=== PATIENT | female | born 1980 | race Two or more races ===

== ENCOUNTER 2023-12-18 18:18 | Emergency (ER) | payer SELFPAY ==
[2023-12-18 18:30] VITALS: BP 126/87; PULSE 88; RESP 20; TEMP 98.7; BMI 31.1
[2023-12-18] MEDS ORDERED: IBUPROFEN 600 MG TABLET (FP) PO ONE (19:47)
[2023-12-18] MEDS ORDERED: ACETAMINOPHEN 500 MG TABLET (FP) ONE (19:47)
[2023-12-18] MEDS: ACETAMINOPHEN 500 MG TABLET (FP) PO ONE (19:49)
[2023-12-18] MEDS: IBUPROFEN 600 MG TABLET (FP) PO ONE (19:50)
== END 2023-12-18 20:04 | disposition home or self-care (01) ==
LOC: JERFT 18:18 → JER 18:18 → JERFT 20:04
DX: T23.002A Burn of unspecified degree of left hand, unspecified site, initial encounter (principal); X12.XXXA Contact with other hot fluids, initial encounter; Y93.G3 Activity, cooking and baking
CPT/HCPCS: 99283-25